=== PATIENT | male | born 1930 | race Caucasian/White ===

== ENCOUNTER 2018-10-31 13:28 | Emergency (ER) | payer OTHER ==
[2018-10-31 13:35] VITALS: BP 131/74; PULSE 95; TEMP 98.2; BMI 23.9
--- NOTE | 2018-10-31 14:09 | PDOC ---
History of Present Illness - General Chief Complaint: Laceration Stated Complaint: HEAD WOUND Time Seen by Provider: 10/31/18 13:58 History Source: Patient Exam Limitations: No Limitations - History of Present Illness Initial Comments: 10/31/18 14:09 The patient is an 88 year old male with a past medical history of HTN, HLD, on asprin, Gout, who presents s/p mechanical fall today at noon. Ptient slipped and fell outside, fatting forward on his hands and hitting his forehead on pavement. he scraped his forehead and his glasses scraped the bridge of his hose. He denies loc, denies palpitations, dizziness, flushing, co before the fall. he was able to get up right away. he currently denies change in vision, tinnitus, vertigo, h/a, n/v. He denies issues with balance or frequent falls. 10/31/18 14:21 Past History - Past Medical History Allergies/Adverse Reactions: Allergies Allergy/AdvReac Type Severity Reaction Status Date / Time No Known Allergies Allergy Verified 10/31/18 13:32 Home Medications: Ambulatory Orders Aspirin [ASA -] 81 mg PO DAILY 09/08/16 Atorvastatin Ca [Lipitor] 80 mg PO HS 09/08/16 Lisinopril/Hydrochlorothiazide [Lisinopril-Hctz 20-25 mg Tab] 1 each PO DAILY COPD: No HTN: Yes Hypercholesterolemia: Yes - Immunization History Immunization Up to Date: Yes (tetanus 09/15) - Suicide/Smoking/Psychosocial Hx Smoking History: Never smoked Have you smoked in the past 12 months: No Hx Alcohol Use: No Drug/Substance Use Hx: No Substance Use Type: None Review of Systems - Review of Systems Able to Perform ROS?: Yes Is the patient limited Turkmen proficient: No Constitutional: No: Chills, Fever HEENTM: No: Blurred Vision, Ear Pain, Tinnitus, Nose Bleeding Respiratory: No: Cough, Orthopnea, Shortness of Breath Cardiac (ROS): No: Chest Pain, Edema, Irregular Heart Rate, Lightheadedness, Palpitations, Syncope ABD/GI: No: Constipated, Diarrhea, Difficulty Swallowing, Nausea, Vomiting, Abdominal cramping : No: Dysuria Musculoskeletal: Yes: Joint Swelling (L 5th digit ). No: Back Pain, Joint Pain , Neck Pain Integumentary: Yes: Bruising (forehead ) Neurological: No: Headache, Numbness, Paresthesia, Unsteady Gait, Ataxia, Dizziness Psychiatric: No: Anxiety, Depression *Physical Exam - Vital Signs Last Vital Signs Temp Pulse Resp BP Pulse Ox 98.2 F 95 H 18 131/74 96 10/31/18 13:34 10/31/18 13:34 10/31/18 13:34 10/31/18 13:34 10/31/18 13:34 - Physical Exam General Appearance: Yes: Nourished, Appropriately Dressed. No: Apparent Distress HEENT: positive: EOMI, REUBEN, Normal ENT Inspection, Lesions (anterior mid-L sided forehead abrasion/hematoma. midline nasal bridge abrasion ), Other ( negative gomes sign, no raccoon eyes, no blood in ears, teets intact, no tongue laceration ). negative: Scleral Icterus (R), Scleral Icterus (L) Neck: positive: Trachea midline, Normal Thyroid, Supple. negative: Tender, Rigid, Carotid bruit, Lymphadenopathy (R), Lymphadenopathy (L), Rigidity, Tender lateral, Tender midline, Thyromegaly Respiratory/Chest: positive: Lungs Clear, Normal Breath Sounds Cardiovascular: positive: Regular Rhythm, Regular Rate, S1, S2 Gastrointestinal/Abdominal: positive: Normal Bowel Sounds, Flat, Soft. negative : Tender Musculoskeletal: negative: CVA Tenderness Extremity: positive: Normal Range of Motion, Pelvis Stable, Swelling (L 5th digit ). negative: Tender Integumentary: positive: Normal Color, Dry, Warm Neurologic: positive: fruit shipper II-XII NML intact, Fully Oriented, Alert, Normal Mood/ Affect, Motor Strength 5/5. negative: Facial Droop, Numbness, Sensory Deficit, Confused Moderate Sedation - Procedure Monitoring Vital Signs: Procedure Monitoring Vital Signs Temperature 98.2 F 10/31/18 13:34 Pulse Rate 95 H 10/31/18 13:34 Respiratory Rate 18 10/31/18 13:34 Blood Pressure 131/74 10/31/18 13:34 O2 Sat by Pulse Oximetry (%) 96 10/31/18 13:34 ED Treatment Course - ADDITIONAL ORDERS Additional order review: 10/31/18 14:28 patient presents with mechanical fall will proceed with head CT w/o cont and LUE fingers X ray to r/o fracture facial abrasions do not require sutures 10/31/18 15:56 CT head no evidence of bleed finger x ray shows a fracture of left 5th digit. 5th digital flexor sheith nerve block administered and digit set back in place, sling applied 10/31/18 16:25 10/31/18 17:21 repeat L 5th digit x ray shows successfully set fracture patient now complains of R rib ache (mild), will order rib series 10/31/18 18:24 On rib series patient appears to have 2 lower broken ribs on the R Will order u/a to r/o hematuria indicative of kidney damage 10/31/18 18:42 UA shows no blood *DC/Admit/Observation/Transfer Diagnosis at time of Disposition: Abrasion Fall Qualifiers: Encounter type: initial encounter Qualified Code(s): W19.XXXA - Unspecified fall, initial encounter Rib fracture Qualifiers: Encounter type: initial encounter Rib fracture type: multiple ribs Fracture type: closed Laterality: right Qualified Code(s): S22.41XA - Multiple fractures of ribs, right side, initial encounter for closed fracture - Discharge Dispostion Disposition: HOME Condition at time of disposition: Good Decision to Admit order: No - Referrals Referrals: Luis Bañuelos MD [Primary Care Provider] - Gen Payne MD [Staff Physician] - - Patient Instructions Additional Instructions: please Keep the splint on your finger for a week, follow up with orthopedic surgeon Dr Payne in 1 week. you may ice your forehead and finger. You have 2 lower broken ribs on your right. Please take over the counter tylenol for pain as needed, use incentive spirometer twice a day to assure good rib healing and to prevent pneumonia and lung collapse we did a CT scan of your head because you hit it during the fall and you take aspirin. CT was negative for bleed but it is important that your family members wake you up every 4 hours tonight to make sure you are arpousable. If you develop headache, nausea, new weakness, numbness or confusion, return to ER immediately Follow up with family physician within 1 week - Post Discharge Activity
--- NOTE | 2018-10-31 14:50 | PDOC ---
Attending Attestation - HPI HPI: 10/31/18 14:51 The patient is an 88 year old male with past medical history of hypertension, hyperlipidemia, and gout who presents to the ED s/p mechanical slip and fall on ice today. Patient fell forward with outstretched arms, but hitting his head on the pavement, subsequently scraping his forehead and nose. Patient also complains of pain to his left pinky finger. Denies any loss of consciousness, visual changes, headache or focal neurological deficits. Denies any NVD, chest pain, SOB, or palpitations. - Physicial Exam PE: 10/31/18 14:51 Vitals: Triage Vital signs reviewed General Appearance: no acute distress, well nourished well developed, Head: Abrasion to forehead, and abrasion to nose with some loss of skin. Normocephalic Neck: Supple;No Nuchal rigidity Cardiac: Regular rate and rhythm, no murmurs, no rubs, no gallops, Lungs: Clear to auscultation bilateral, good air movement bilaterally, Abdomen: Soft, nondistended, normal bowel sounds, nontender to palpation Extremities: Likely dislocation deformity to left pinky. Full range of motion to all extremities, no cyanosis, clubbing, or edema Skin: Bilateral knuckle abrasions. Warm and dry, no rashes or lesions, no petechiae Neuro: AOX3; Cranial Nerves 2-12 grossly intact, Strength intact to all extremities, Sensation intact to all extremities Psych: normal mood, normal affect - Medical Decision Making 10/31/18 14:53 Documentation prepared by Luana Hill, acting as medical record librarian for Kaleb Sunshine MD. <Luana Hill - Last Filed: 10/31/18 14:51> - Resident Resident Name: Martia Ogden - ED Attending Attestation I have performed the following: I have examined & evaluated the patient, The case was reviewed & discussed with the resident, I agree w/resident's findings & plan, Exceptions are as noted - Medical Decision Making 10/31/18 16:35 X-rays old on aspirin mechanical slip and fall on black ice with contusion to face and nose head CT negative for acute pathology left pinky fractured digital nerve block performed and reduced in the ED with good alignment Patient lives with will perform neuro checks will return to ED for any change in mental status persistent vomiting lethargy or for any concerns patient will follow up with his doctor tomorrow Findings, the need for follow-up and strict return instructions discussed with patient. <Kaleb Sunshine - Last Filed: 10/31/18 16:37>
[2018-10-31] MEDS ORDERED: LIDOCAINE HCL 2% (20ML MULTI-DOSE VIAL) NR ONE (16:08)
[2018-10-31] MEDS ORDERED: BACITRACIN 15 GM TUBE TOPICAL OINTMENT TP ONE (16:51)
[2018-10-31 18:33] LABS: URINE APPEARANCE CLEAR; URINE BILIRUBIN NEGATIVE (<2.0 mg/dL); URINE COLOR YELLOW; URINE GLUCOSE (UA) NEGATIVE (NEGATIVE); URINE KETONE NEGATIVE (NEGATIVE); URINE LEUK ESTERASE NEGATIVE (NEGATIVE); URINE NITRITE NEGATIVE (NEGATIVE); URINE PROTEIN NEGATIVE (NEGATIVE); URINE UROBILINOGEN NEGATIVE mg/dL (0.2-1.0)
== END 2018-10-31 19:28 | disposition home or self-care (01) ==
LOC: JER 13:28
PROC: 0RSXXZZ Reposition Left Finger Phalangeal Joint, External Approach (ICD-10-PCS; principal; 2018-10-31)
DX: S62.617A Displaced fracture of proximal phalanx of left little finger, initial encounter for closed fracture (principal); S22.41XA Multiple fractures of ribs, right side, initial encounter for closed fracture; S00.81XA Abrasion of other part of head, initial encounter; W18.39XA Other fall on same level, initial encounter; Y93.89 Activity, other specified; Y92.89 Other specified places as the place of occurrence of the external cause
CPT/HCPCS: 70450-TC; 71111-TC-FY; 73140-TC-LT-FY; 81003; 99283-25

== ENCOUNTER 2021-03-04 04:23 | Day surgery (SDC) | payer OTHER ==
[2021-03-03 17:59] VITALS: BMI 27.4
[~2021-03-04 04:23] MED LIST: DEXAMETHASONE SOD PHOSPHATE 10 MG/1 ML VIAL IM ONE; IOHEXOL 180 MG/1 ML ML IJ ONE; LIDOCAINE 1% P/F 10 MG/ML VIAL INF ONE
[2021-03-04] MEDS ORDERED: LIDOCAINE HCL/PF 1% SDV 5ML VIAL ONE (07:23)
[2021-03-04] MEDS ORDERED: DEXAMETHASONE SOD PHOSPHATE 10 MG/1 ML VIAL ONE (07:23)
[2021-03-04] MEDS ORDERED: DEXAMETHASONE SOD PHOSPHATE 10 MG/1 ML VIAL IM ONE (09:16)
[2021-03-04] MEDS ORDERED: IOHEXOL 180 MG/1 ML ML IJ ONE (09:16)
[2021-03-04] MEDS ORDERED: LIDOCAINE 1% P/F 10 MG/ML VIAL INF ONE (09:17)
[2021-03-04 09:46] VITALS: BP 140/81; PULSE 78; TEMP 97.5
== END 2021-03-04 10:03 | disposition home or self-care (01) ==
LOC: JASU-SURG 04:23
PROVIDERS: ATTEND Pain Medicine Pain Medicine
PROC: 3E0R33Z Introduction of Anti-inflammatory into Spinal Canal, Percutaneous Approach (ICD-10-PCS; 2021-03-04)
PROC: B01BYZZ Fluoroscopy of Spinal Cord using Other Contrast (ICD-10-PCS; 2021-03-04)
PROC: 3E0R3BZ Introduction of Anesthetic Agent into Spinal Canal, Percutaneous Approach (ICD-10-PCS; principal; 2021-03-04 09:30)
DX: M54.16 Radiculopathy, lumbar region (principal)
CPT/HCPCS: 76000-TC-FY; J1100

== ENCOUNTER 2021-04-01 05:14 | Day surgery (SDC) | payer OTHER ==
[2021-03-31 10:26] VITALS: BMI 27.4
[2021-04-01] MEDS ORDERED: LIDOCAINE HCL/PF 1% SDV 5ML VIAL ONE (07:14)
[2021-04-01] MEDS ORDERED: BUPIVACAINE HCL/PF 0.5% (5MG/ML) 10 ML VIAL ONE (07:14)
[2021-04-01] MEDS ORDERED: TRIAMCINOLONE ACET 40MG/1ML VIAL ONE (07:14)
[2021-04-01] MEDS ORDERED: IOHEXOL 180 MG/1 ML ML IJ ONE (10:30)
[2021-04-01] MEDS ORDERED: TRIAMCINOLONE ACETONIDE 40 MG/ML 10 ML VIAL IJ ONE (10:31)
[2021-04-01] MEDS ORDERED: BUPIVACAINE HCL/PF 0.5% (5MG/ML) 10 ML VIAL IJ ONE (10:34)
[2021-04-01] MEDS ORDERED: LIDOCAINE HCL 1%, 10 MG/ML (20ML VIAL) INF ONE (10:35)
[2021-04-01 11:10] VITALS: TEMP 97.8
[2021-04-01 11:51] VITALS: BP 126/68; PULSE 70
== END 2021-04-01 11:45 | disposition home or self-care (01) ==
LOC: JASU-SURG 05:14
PROVIDERS: ATTEND Pain Medicine Pain Medicine
PROC: 3E0U3BZ Introduction of Anesthetic Agent into Joints, Percutaneous Approach (ICD-10-PCS; 2021-04-01)
PROC: 3E0U33Z Introduction of Anti-inflammatory into Joints, Percutaneous Approach (ICD-10-PCS; principal; 2021-04-01 10:15)
DX: M53.3 Sacrococcygeal disorders, not elsewhere classified (principal)
CPT/HCPCS: 76000-TC-FY